=== PATIENT | female | born 1985 | race Caucasian/White ===

== ENCOUNTER 2023-03-23 14:52 | Emergency (ER) | payer SELFPAY ==
[~2023-03-23] VITALS: Ht 167.6 cm; Wt 77.1 kg
[2023-03-23] MEDS ORDERED: KETOROLAC TROMETHAMINE 30 MG/ML VIAL IV STA (15:06)
[2023-03-23] MEDS ORDERED: ONDANSETRON HCL INJ 2MG/ML 2ML 2 MG/ML VIAL IV STA (15:06)
[2023-03-23] MEDS ORDERED: FENTANYL CITRATE/PF 100MCG/2 ML INJ IV ONE (15:15)
[2023-03-23 15:25] LABS: CLARITY,URINE SL CLOUDY (CLEAR); COLOR,URINE YELLOW (YELLOW); GLUCOSE, URINE NEGATIVE (NEGATIVE); KETONES,URINE TRACE (NEGATIVE); LEUKOCYTE ESTERASE ,URINE NEGATIVE (NEGATIVE); NITRITE,URINE NEGATIVE (NEGATIVE); PH,URINE 6.5 (5 - 7); PROTEIN,URINE DIPSTICK 1+ (NEGATIVE); URINE UROBILINOGEN 0.2 mg/dL (0.2 - 1)
[2023-03-23 15:26] LABS: BILIRUBIN,URINE SMALL (NEGATIVE)
[2023-03-23 15:39] LABS: BASOPHILS % 0.5 % (0.0-1.0); EOSINOPHILS % 0.7 % (0.0-6.0); HEMATOCRIT 44.8 % (34.2-44.1); HEMOGLOBIN 14.9 g/dL (12.0-16.0); LYMPHOCYTES # (AUTO) 1.7 (1.0-3.2); LYMPHOCYTES % 39.9 % (18.0-39.1); MEAN CORPUSCULAR HEMOGLOBIN 33.3 pg (28-32); MEAN CORPUSCULAR HGB CONC 33.3 g/dL (31-35); MEAN CORPUSCULAR VOLUME 100.2 fL (81-99); MONOCYTES # (AUTO) 0.4 (0.2-0.8); MONOCYTES % 10.3 % (4.4-11.3); NEUTROPHILS # (AUTO) 2.1 (2.1-6.9); NEUTROPHILS % 48.4 % (38.7-80.0); PLATELET COUNT 257 x10e3/uL (140-360); RED BLOOD COUNT 4.47 x10e6/uL (3.6-5.1); RED CELL DISTRIBUTION WIDTH 12.4 % (11.7-14.4); WHITE BLOOD COUNT 4.26 x10e3/uL (4.8-10.8)
[2023-03-23 15:46] LABS: EPITHELIAL CELLS,URINE MANY /LPF
[2023-03-23 15:47] LABS: BACTERIA,URINE MODERATE /HPF; RBC,URINE 0-5 /HPF (0-5); WBC,URINE (MAN) 0-5 /HPF (0-5)
[2023-03-23 15:57] LABS: ALBUMIN 3.7 g/dL (3.5-5.0); ALBUMIN/GLOBULIN RATIO 0.9 (0.8-2.0); BILIRUBIN,TOTAL 0.2 mg/dL (0.2-1.2); CALCIUM 9.1 mg/dL (8.4-10.2); CREATININE, SERUM 0.86 mg/dL (0.57-1.11); TOTAL PROTEIN 7.8 g/dL (6.5-8.1)
[2023-03-23] MEDS ORDERED: FENTANYL CITRATE/PF 100MCG/2 ML INJ IV PRN (16:30)
[2023-03-23] MEDS ORDERED: DICYCLOMINE HCL20 MG PO (16:59)
[2023-03-23] MEDS ORDERED: HYDROCODON-ACE1 EA11 PO (16:59)
[2023-03-23 17:11] VITALS: BP 129/92; PULSE 59; RESP 18; TEMP 98.7; O2SAT 97
== END 2023-03-23 17:05 | disposition home or self-care (01) ==
LOC: ER 14:58
DX: R31.9 Hematuria, unspecified (principal); R10.30 Lower abdominal pain, unspecified; I10 Essential (primary) hypertension; K21.9 Gastro-esophageal reflux disease without esophagitis; Z87.19 Personal history of other diseases of the digestive system
CPT/HCPCS: 36415; 74176; 80053; 81001; 84702; 85025; 87086; 99284; J1885; J2405; J3010

== ENCOUNTER 2024-04-24 10:58 | Emergency (ER) | payer SELFPAY ==
[~2024-04-24] VITALS: Ht 167.6 cm; Wt 70.3 kg
[~2024-04-24 10:58] MED LIST: DICYCLOMINE HCL10 MG PO; DICYCLOMINE HCL20 MG PO; HYDROCODON-ACE1 EA11 PO
[2024-04-24 11:00] VITALS: TEMP 98.3
[2024-04-24 11:39] LABS: BASOPHILS % 0.7 % (0.0-1.0); EOSINOPHILS # (AUTO) 0.1 (0.0-0.4); EOSINOPHILS % 1.8 % (0.0-6.0); HEMATOCRIT 39.3 % (34.2-44.1); HEMOGLOBIN 13.5 g/dL (12.0-16.0); LYMPHOCYTES # (AUTO) 2.1 (1.0-3.2); LYMPHOCYTES % 34.3 % (18.0-39.1); MEAN CORPUSCULAR HEMOGLOBIN 33.1 pg (28-32); MEAN CORPUSCULAR HGB CONC 34.4 g/dL (31-35); MEAN CORPUSCULAR VOLUME 96.3 fL (81-99); MONOCYTES # (AUTO) 0.4 (0.2-0.8); MONOCYTES % 6.5 % (4.4-11.3); NEUTROPHILS # (AUTO) 3.4 (2.1-6.9); NEUTROPHILS % 56.5 % (38.7-80.0); PLATELET COUNT 266 x10e3/uL (140-360); RED BLOOD COUNT 4.08 x10e6/uL (3.6-5.1); RED CELL DISTRIBUTION WIDTH 12.3 % (11.7-14.4); WHITE BLOOD COUNT 6.03 x10e3/uL (4.8-10.8)
[2024-04-24 11:56] LABS: INR 0.93
[2024-04-24 11:57] LABS: PARTIAL THROMBOPLASTIN TIME 24.1 seconds (23.8-35.5)
[2024-04-24 12:02] LABS: ALANINE AMINOTRANSFERASE 13 IU/L (0-55); ALBUMIN 4.1 g/dL (3.5-5.0); ALBUMIN/GLOBULIN RATIO 1.4 (0.8-2.0); ALKALINE PHOSPHATASE 39 IU/L (40-150); BILIRUBIN,TOTAL 0.6 mg/dL (0.2-1.2); BLOOD UREA NITROGEN 15 mg/dL (7-26); BUN/CREATININE RATIO 15 (6-25); CALCIUM 9.3 mg/dL (8.4-10.2); CARBON DIOXIDE 21 mmol/L (22-29); CHLORIDE 105 mmol/L (98-107); CREATININE, SERUM 0.97 mg/dL (0.57-1.11); EST GLOMERULAR FILTRATION RATE 76 ML/MIN (>=60); GLUCOSE 96 mg/dL (74-118); SODIUM 136 mmol/L (136-145); TOTAL PROTEIN 7.1 g/dL (6.5-8.1)
[2024-04-24 12:06] LABS: BILIRUBIN,URINE NEGATIVE (NEGATIVE); CLARITY,URINE CLEAR (CLEAR); COLOR,URINE YELLOW (YELLOW); GLUCOSE, URINE NEGATIVE (NEGATIVE); KETONES,URINE NEGATIVE (NEGATIVE); LEUKOCYTE ESTERASE ,URINE NEGATIVE (NEGATIVE); NITRITE,URINE NEGATIVE (NEGATIVE); PH,URINE 6 (5 - 7); PROTEIN,URINE DIPSTICK NEGATIVE (NEGATIVE); URINE UROBILINOGEN 1 mg/dL (0.2 - 1)
[2024-04-24 12:28] LABS: BACTERIA,URINE FEW /HPF; EPITHELIAL CELLS,URINE FEW /LPF; RBC,URINE 0-5 /HPF (0-5); WBC,URINE (MAN) 0-5 /HPF (0-5)
[2024-04-24] MEDS: ONDANSETRON HCL INJ 2MG/ML 2ML 2 MG/ML VIAL IV STA (12:37)
[2024-04-24] MEDS: KETOROLAC TROMETHAMINE 30 MG/ML VIAL IV STA (12:37)
[2024-04-24] MEDS: SODIUM CHLORIDE 0.9% 1000ML 1,000 ML IV STA (12:37)
[2024-04-24] MEDS: Morphine 4mg INJECTION 4 MG/ML INJ IV STA (12:37)
[2024-04-24 12:48] VITALS: PULSE 52; RESP 16
[2024-04-24 13:01] LABS: OPIATES SCREEN,URINE NEGATIVE (NEGATIVE)
[2024-04-24 13:02] LABS: AMPHETAMINES SCREEN,URINE POSITIVE (NEGATIVE); BENZODIAZEPINES SCREEN,URINE NEGATIVE (NEGATIVE); CANNABINOIDS SCREEN,URINE POSITIVE (NEGATIVE); COCAINE SCREEN,URINE NEGATIVE (NEGATIVE); PHENCYCLIDINE SCREEN,URINE NEGATIVE (NEGATIVE)
[2024-04-24 13:03] LABS: METHADONE SCREEN, URINE NEGATIVE (NEGATIVE)
[2024-04-24] MEDS ORDERED: METHOCARBAMOL750 MG PO (13:58)
[2024-04-24 14:16] VITALS: BP 123/89; PULSE 79; RESP 18; TEMP 97.5; O2SAT 100
== END 2024-04-24 14:17 | disposition home or self-care (01) ==
LOC: ER 11:23
DX: R10.30 Lower abdominal pain, unspecified (principal); M79.18 Myalgia, other site; I10 Essential (primary) hypertension; K21.9 Gastro-esophageal reflux disease without esophagitis; Z87.19 Personal history of other diseases of the digestive system
CPT/HCPCS: 36415; 74176; 80053; 80307; 81001; 84702; 85025; 85610; 85730; 87086; 99284; J1885; J2270; J2405; J7030